=== PATIENT | male | born 1960 | race Caucasian/White ===

== ENCOUNTER 2023-01-22 06:17 | Day surgery (SDC) | payer BC ==
[2023-01-20 16:41] LABS: Absolute Lymphocytes (CBC) 1.7 K/uL (0.7-4.9); Hematocrit 38.7 % (39.6-49.0); Lymphocytes % 33.9 % (15.3-44.8); MCV 95.3 fL (80-100); MPV 7.5 fL (7.6-11.3); RBC Red Blood Cell Count 4.06 M/uL (4.33-5.43)
[2023-01-22] MEDS ORDERED: Ringers Lactate 1,000 ML IV ONE (06:41)
[2023-01-22] MEDS ORDERED: CEFAZOLIN SODIUM 1 GM/VIAL ONE (06:41)
[2023-01-22] MEDS ORDERED: ONDANSETRON 4 MG/2 ML VIAL ONE (07:24)
[2023-01-22] MEDS ORDERED: MIDAZOLAM HCL 2 MG/2 ML INJ ONE (07:24)
[2023-01-22] MEDS ORDERED: ROCURONIUM 50 MG/5 ML VIAL IV ONE (07:24)
[2023-01-22] MEDS ORDERED: dexAMETHasone 4 MG/ML VIAL ONE (07:24)
[2023-01-22] MEDS ORDERED: LIDOCAINE 2% MPF 5 ML VIAL ONE (07:24)
[2023-01-22] MEDS ORDERED: FENTANYL CITR 100 MCG/2 ML ONE (07:24)
[2023-01-22] MEDS ORDERED: propofoL 200 MG/20 ML VIAL IV ONE (07:24)
[2023-01-22] MEDS ORDERED: SUCCINYLCHOLINE 20 MG/ML (10 ML) IV ONE (07:32)
[2023-01-22] MEDS ORDERED: NS 0.9% VIAL 10 ML ONE (07:59)
[2023-01-22] MEDS ORDERED: Phenylephrine HCl 10 MG/ML 1 ML VIAL ONE (07:59)
[2023-01-22] MEDS ORDERED: KETAMINE HCL IN 0.9 % NACL 50 MG/5 ML SYRINGE IV ONE (08:00)
[2023-01-22] MEDS ORDERED: GLYCOPYRROLATE 0.2 MG/ML SYR ONE (08:10)
[2023-01-22] MEDS ORDERED: NEOSTIGMINE 1 MG/ML -10 ML VIAL ONE (08:43)
--- NOTE | 2023-01-22 08:47 | P.OP ---
Date of Service: 01/22/23 Preop diagnosis: Right inguinal hernia Postop diagnosis: Same Procedure performed: Repair of right inguinal hernia Surgeon: Jeromy Walters MD Hose Operator: ANNIE Mcknight Estimated blood loss: Minimal Specimen: Hernia sac and cord lipoma Findings: As above Anesthesia: General Complications: None Drains: None Fluids and blood products: Nonapplicable Disposition: Recovery room Operative note: Patient brought to the OR and placed in supine position. General anesthesia begun. Patient prepped and draped in the usual sterile fashion. Marcaine 0.5% infiltrated in a field block fashion in the right groin. 15 blade used to make a 4 cm incision between the right pubic tubercle and the right anterior iliac superior spine. Subcutaneous tissue divided and bleeding controlled cautery. Kashif's fascia identified and divided. Aponeurosis of the external abdominal oblique muscle identified and mobilized inferiorly to expose the shelving edge. The aponeurosis opened through the external ring. Ilioinguinal nerve identified and retracted out of the field of dissection. Cord mobilized at the pubic tubercle and skeletonized. Large cord lipoma and indirect hernia sac identified. Both structures freed from surrounding tissue with sharp and blunt dissection. High ligation of the hernia sac done with 2-0 Prolene suture ligature and freehand tie. Base of the cord lipoma tied off with 2-0 chromic suture. Both structures sent to pathology as specimen. Marlex mesh plug placed in the internal ring and secured with VersaTack stapler. Onlay mesh placed in the inguinal floor and secured to the shelving edge inferiorly, conjoined tendon superiorly, pubic tubercle medially and laterally to each other. Cord structures and ilioinguinal nerve placed back in anatomic location. 2-0 Prolene used to close the aponeurosis. 3-0 chromic used to reapproximate Kashif's fascia. 3-0 chromic also used to close skin. Sterile dressing applied. Patient awakened and taken to recovery room in good general condition. CC: Dr. Crook's office
[2023-01-22] MEDS ORDERED: HYDROCODONE/APAP 7.5/325 MG TAB PO PRN (08:48)
[2023-01-22] MEDS ORDERED: Mastisol Adhesive Liq ONE (08:50)
[2023-01-22 09:48] VITALS: BP 143/83; TEMP 97.5; O2SAT 100
[2023-01-22] MEDS ORDERED: HYDROCODONE/APAP 7.5/325 MG TAB ONE (10:06)
--- NOTE | 2023-01-25 13:20 | EKG ---
Test Date: 2023-01-20 Test Time: 16:02:13 Room Service Bellhop: MAYURI MEASUREMENT RESULTS: Intervals: Rate: 82 MT: 126 QRSD: 88 QT: 376 QTc: 439 [place]: P: 61 MT: 126 QRS: 90 T: 74 INTERPRETIVE STATEMENTS: Normal sinus rhythm Rightward axis Borderline ECG Compared to ECG 01/02/2015 15:21:00 Right-axis deviation now present Electronically Signed On 01-25-23 13:13:07 CDT by Jose Simmons
== END 2023-01-22 10:36 | disposition home or self-care (01) ==
LOC: OR 06:17
PROVIDERS: ATTEND Surgery
PROC: 0YU50JZ Supplement Right Inguinal Region with Synthetic Substitute, Open Approach (ICD-10-PCS; principal; 2023-01-22 07:30)
DX: K40.90 Unilateral inguinal hernia, without obstruction or gangrene, not specified as recurrent (principal)
CPT/HCPCS: 93005; 85025; 80048; 36415; 88302; 49505; A4216; J2704; J1100; J2710; J2371; J2001; J2250; J3010; J2405; J7120; J0690